=== PATIENT | female | born 1940 | race American Indian/Alaskan Native ===

== ENCOUNTER 2018-01-25 09:25 | Emergency (ER) | payer MEDICARE, BC ==
[2018-01-25 09:27] VITALS: BMI 30.7
[2018-01-25 09:47] VITALS: RESP 18
--- NOTE | 2018-01-25 10:04 | ED PDOC ---
Arrival/HPI - General Historian: Patient - History of Present Illness Narrative History of Present Illness (Text): 01/25/18 09:57 77yr old female presents today with nontraumatic left hip pain. Patient states she started to develop some left hip pain 3 days ago which has been gradually increasing. Patient states she took some Tylenol for pain yesterday without improvement. Patient states that she lays flat she has no pain when she tries to apply any pressure on to that leg she gets pain in the left hip. Patient also states she has pain in the left hip with certain movements. She denies any back pain. She denies bladder or bowel incontinence. She denies numbness weakness or tingling in the extremity. Patient denies fevers or chills. No chest pain or shortness of breath. No abdominal pain. No other complaints no medications have been taken for pain today. <Gabriella Ugalde - Last Filed: 01/25/18 13:35> <Av Joy - Last Filed: 01/25/18 14:48> - General Chief Complaint: Hip Pain Time Seen by Provider: 01/25/18 09:43 Past Medical History - Provider Review Nursing Documentation Reviewed: Yes - Travel History Have you recently traveled outside [place] w/in the past 3 mons?: No - Cardiac Hx Hypertension: Yes - HEENT Hx Epistaxis: Yes - Psychiatric Hx Substance Use: No <Gabriella Ugalde - Last Filed: 01/25/18 13:35> Family/Social History - Physician Review Nursing Documentation Reviewed: Yes Family/Social History: Unknown Family HX Smoking Status: Never Smoked Hx Alcohol Use: No Hx Substance Use: No <Gabriella Ugalde - Last Filed: 01/25/18 13:35> Allergies/Home Meds <Gabriella Ugalde - Last Filed: 01/25/18 13:35> <Av Joy - Last Filed: 01/25/18 14:48> Allergies/Adverse Reactions: Allergies No Known Allergies Allergy (Verified 01/25/18 09:27) Home Medications: Home Meds Medication Instructions Recorded Confirmed Amlodipine/Atorvastatin 1 tab PO DAILY 01/25/18 01/25/18 [Amlodipine-Atorvast 5-20 mg] Simvastatin 10 mg PO DAILY 01/25/18 01/25/18 Review of Systems - Review of Systems Constitutional: absent: Fatigue, Fevers Respiratory: absent: SOB, Cough Cardiovascular: absent: Chest Pain, Palpitations Gastrointestinal: absent: Abdominal Pain, Constipation, Diarrhea, Nausea, Vomiting Genitourinary Female: absent: Dysuria, Frequency, Hematuria Musculoskeletal: Arthralgias. absent: Back Pain, Neck Pain Skin: absent: Rash, Pruritis Neurological: absent: Headache, Dizziness Psychiatric: absent: Anxiety, Depression <Gabriella Ugalde T - Last Filed: 01/25/18 13:35> Physical Exam Vital Signs Reviewed: Yes Vital Signs Temp Pulse Resp BP Pulse Ox 01/25/18 09:46 98.1 F 67 18 149/78 97 Temperature: Afebrile Blood Pressure: Normal Pulse: Regular Respiratory Rate: Normal Appearance: Positive for: Well-Appearing, Non-Toxic, Comfortable Pain Distress: None Mental Status: Positive for: Alert and Oriented X 3 - Systems Exam Head: Present: Atraumatic Mouth: Present: Moist Mucous Membranes Neck: Present: Normal Range of Motion Respiratory/Chest: Present: Clear to Auscultation, Good Air Exchange. No: Respiratory Distress, Accessory Muscle Use Cardiovascular: Present: Regular Rate and Rhythm, Normal S1, S2. No: Murmurs Abdomen: No: Tenderness, Distention, Peritoneal Signs, Rebound, Guarding Back: Present: Normal Inspection. No: Midline Tenderness, Paraspinal Tenderness Upper Extremity: Present: Normal ROM Lower Extremity: Present: Normal Inspection, NORMAL PULSES, Normal ROM (full rom of hip with pain. ), Tenderness (+ minimal tenderness over lateral aspect of left hip), Neurovascularly Intact, Capillary Refill < 2 s. No: CALF TENDERNESS, Swelling, Erythema, Temperature Abnormalties Neurological: Present: GCS=15, Speech Normal Skin: Present: Warm, Dry, Normal Color. No: Rashes Psychiatric: Present: Alert, Oriented x 3 <Gabriella Ugalde T - Last Filed: 01/25/18 13:35> Vital Signs Temp Pulse Resp BP Pulse Ox 01/25/18 14:12 98.2 F 70 18 141/71 100 01/25/18 09:46 98.1 F 67 18 149/78 97 <Av Joy - Last Filed: 01/25/18 14:48> Medical Decision Making ED Course and Treatment: 01/25/18 10:09 77-year-old female with atraumatic left hip pain 3 days. xray left hip; FINDINGS: BONES: Normal. No fracture. JOINTS: Normal. SOFT TISSUES: Normal. OTHER FINDINGS: There is bony sclerosis in the symphysis pubis IMPRESSION: Negative study pt is refusing medications for pain. pt states she has no pain if she doesn't move the hip. ct hip; FINDINGS: There is no evidence of fracture. There are no significant degenerative changes seen. There is no muscular abnormality. There is no evidence of joint effusion There is a well-defined bony defect in the iliac bone which is most likely the donor site of a bone graft. IMPRESSION: Negative study Patient reassessment: After Toradol patient is feeling much better ambulating with steady gait. I discussed all results in depth with the patient and her family member and advised follow-up with the orthopedist and primary care physician. Cane given for ambulation Patient verbalizes understanding of discharge instructions and need for immediate followup. all aspects of this case were discussed the attending of record. impression; hip pain motrin every 6 hours as needed for pain tylenol every 4 hours as needed for pain follow up with the orthopedist within the next 2 days. Follow up with the primary care physician within the next 2 days. return immediately if symptoms worsen,persist or if new symptoms develop. - RAD Interpretation Radiology Orders: 01/25/18 09:53 Hip Left [HIP MIN 2V W/ PELVIS LT] [RAD] Stat <Gabriella Ugalde T - Last Filed: 01/25/18 13:35> - RAD Interpretation Radiology Orders: 01/25/18 09:53 Hip Left [HIP MIN 2V W/ PELVIS LT] [RAD] Stat 01/25/18 11:36 EXT LOWER W/O CONTRAST LEFT [CT] Stat - Medication Orders Current Medication Orders: Discontinued Medications Ketorolac Tromethamine (Toradol) 15 mg IM STAT STA Stop: 01/25/18 12:03 Last Admin: 01/25/18 13:02 Dose: 15 mg JOE Pain Assessment Document 01/25/18 13:02 MR (Rec: 01/25/18 13:02 MR [id number]) Pain Reassessment Is this a pain reassessment? Yes Sleep Is patient sleeping during reassessment? No Presence of Pain Presence of Pain Yes Pain Scale Used Protocol: PSCALES Pain Scale Used Numeric Location Left, Right or Bilateral Left Pain Location Body Site Hip Description Description Intermittent Intensity of Pain at present 9 Aggravating Factors ADL's Changing Position Walking Alleviating Factors/Management Medication Techniques IM Administration Charges Document 01/25/18 13:02 (Rec: 01/25/18 13:02 MR [id number]) Injection Site MAR Injection Site Left Gluteus Josemanuel Charges for Administration # of IM Administrations 1 <Av Joy - Last Filed: 01/25/18 14:48> - PA / CLINICAL RESEARCH PHYSICIAN / Resident Statement MD/ has reviewed & agrees with the documentation as recorded. <Av Joy - Last Filed: 01/25/18 14:48> Disposition/Present on Arrival - Present on Arrival Any Indicators Present on Arrival: No History of DVT/PE: No History of Uncontrolled Diabetes: No Urinary Catheter: No History of Decub. Ulcer: No History Surgical Site Infection Following: None - Disposition Have Diagnosis and Disposition been Completed?: Yes Disposition Time: 11:30 Patient Plan: Discharge <Gabriella Ugalde - Last Filed: 01/25/18 13:35> <Av Joy - Last Filed: 01/25/18 14:48> - Disposition Diagnosis: Hip pain Disposition: HOME/ ROUTINE Condition: GOOD Discharge Instructions (ExitCare): Hip Pain (DC) Additional Instructions: motrin every 6 hours as needed for pain tylenol every 4 hours as needed for pain follow up with the orthopedist within the next 2 days. Follow up with the primary care physician within the next 2 days. return immediately if symptoms worsen,persist or if new symptoms develop. Referrals: Lenny Jang MD [Staff Provider] - Follow up with primary Tomasa Silva MD [Family Provider] - Follow up with primary Forms: [employer] (Burmese)
--- NOTE | 2018-01-25 11:58 | RAD ---
PROCEDURE: Left Hip X-ray Radiographs. HISTORY: hip pain COMPARISON: None. FINDINGS: BONES: Normal. No fracture. JOINTS: Normal. SOFT TISSUES: Normal. OTHER FINDINGS: There is bony sclerosis in the symphysis pubis IMPRESSION: Negative study
--- NOTE | 2018-01-25 12:52 | CT ---
Date of service: 01/25/2018 PROCEDURE: CT of the left hip HISTORY: left hip pain COMPARISON: TECHNIQUE: Radiation dose: Total exam DLP = 337.17 mGy-cm. This CT exam was performed using one or more of the following dose reduction techniques: Automated exposure control, adjustment of the mA and/or kV according to patient size, and/or use of iterative reconstruction technique. FINDINGS: There is no evidence of fracture. There are no significant degenerative changes seen. There is no muscular abnormality. There is no evidence of joint effusion There is a well-defined bony defect in the iliac bone which is most likely the donor site of a bone graft. IMPRESSION: Negative study
[2018-01-25 14:13] VITALS: BP 141/71; PULSE 70; TEMP 98.2; O2SAT 100
== END 2018-01-25 14:12 | disposition home or self-care (01) ==
LOC: ED 09:25
DX: M25.552 Pain in left hip (principal); I10 Essential (primary) hypertension
CPT/HCPCS: 73502; 73700; 96372; 99283; J1885